=== PATIENT | female | born 1950 | race Caucasian/White ===

== ENCOUNTER → 2016-12-04 | Outpatient (REF) | LOC: COL.LAB 16:07 | DX: Z53.9 Procedure and treatment not carried out, unspecified reason (principal) ==

== ENCOUNTER → 2016-12-17 | Outpatient (REF) | LOC: COL.LAB 12:02 | DX: Z02.81 Encounter for paternity testing (principal) ==

== ENCOUNTER → 2019-05-09 | Outpatient (CLI) | payer MEDICARE, OTHER | LOC: MC.RAD 13:06 | DX: Z12.31 Encounter for screening mammogram for malignant neoplasm of breast (principal) ==

== ENCOUNTER → 2021-05-10 | Outpatient (CLI) | payer MEDICARE, OTHER | LOC: MC.RAD 13:55 | DX: Z12.31 Encounter for screening mammogram for malignant neoplasm of breast (principal) ==

== ENCOUNTER 2021-10-08 05:29 | Day surgery (SDC) | payer MEDICARE, OTHER ==
[~2021-10-08] VITALS: Ht 162.6 cm; Wt 68.3 kg
[2021-10-08] VITALS (10 sets, daily range): BP systolic 117–138; BP diastolic 60–71; PULSE 62–80; TEMP 97.4–97.5
[2021-10-08] MEDS ORDERED: LIVALO4 MG PO (06:35)
[2021-10-08] MEDS ORDERED: ZETIA 10MG TAB10 MG PO (06:36)
[2021-10-08] MEDS ORDERED: CLIMARA 0.1 PATCH.WK TD (06:36)
[2021-10-08] MEDS ORDERED: VTAMINC250TA (06:37)
[2021-10-08] MEDS ORDERED: MASON NATURAL2000 IU PO (06:38)
[2021-10-08] MEDS ORDERED: DUO-KAPS1 CAP PO (06:39)
--- NOTE | 2021-10-08 15:51 | NUR ---
Assisted patient in walking in hallway, pt unsteady at times and slightly forgetful. Escorted patient back to reclinernj DD. Tolerating PO liquids without issues. States she has been passing gas, no BM. Call light within reach.
--- NOTE | 2021-10-08 19:04 | NUR ---
Plan of care reviewed with patient, she feels most comfortable staying overnight. Pain has been well controlled with scheduled meds. Tolerating PO intake. Reports passing gas, no BM yet. Resting in bed.
--- NOTE | 2021-10-09 00:36 | NUR ---
Report received from day shift nurse. Assessment and evening medication adminstration completed without difficulty. Patient is in a pleasant mood, sitting bed and watching television. Patient denies any complaints of pain. Gr catheter currently placed, output is light yellow with no signs of sediment. Low fiber diet in place and patients 5 lap sites are well approximated. No other complaints at this time. Call light within reach.
[2021-10-09 00:45] VITALS: BP 104/45; PULSE 71; TEMP 98.2
[2021-10-09 04:49] VITALS: BP 141/60; PULSE 58; TEMP 97.7
--- NOTE | 2021-10-09 05:37 | NUR ---
Patient is here due to a prolapsed vaginal post hysterectomy. Patient has been pleasant when awake and has had no complaints of pain during the maintenance mechanic 2nd shift. Gr is in place with clear, yellow output. Patient still has to produce a BM but states that "it's normal for me to go a few days without going". Patient states that she is passing gas. Patient has no other complaints at this time. Call light within reach.
[2021-10-09 07:47] VITALS: BP 121/72; PULSE 64; TEMP 98.2
--- NOTE | 2021-10-09 08:26 | NUR ---
Patient assisted up to chair, stand by assist. Dr. Mark rounded this am, plan of care reviewed. Simón spann per orders, patient tolerated well. Int x2. Breakfast ordered, patient denies nausea. She reports passing flatus. Abdomen soft, incision site edges well approximated. Will monitor.
--- NOTE | 2021-10-09 09:39 | NUR ---
Social Work student met with patient to discuss discharge planning. Patient lives in [place] with her , Janes (ph#[phone]). Patient's PCP is Dr. Golden. Patient says that her is retired , so they get their medications from [facility], but they use [facility] in [place] as a back up if needed. Patient does not utilize any DME at home, and patient states she is independent with her ADL's. Patient states that she has established a DPOA-HC recently with an tax associate attorney, but has yet to receive a copy of their documents. Patient states that her primary agent is her son, Dewey Jang, and she was unable to provide a phone number at the time of meeting. Discharge plan: Home
--- NOTE | 2021-10-09 10:01 | NUR ---
Initial visit; Patient thanked Configuration Specialist for listening and offering comfort at the mention of Nayeli's sister had recently passed. Configuration Specialist offered prayer and will keep Nayeli, her sister Myriam and her family in Configuration Specialist's prayers.
--- NOTE | 2021-10-09 11:47 | NUR ---
Patient ready for discharge. made aware & discharge orders obtained. Patient has voided x2 without troubles. Her spouse here to take her home, we reviewed all discharge information. We discussed follow up appt. Incision cares and importance of calling doctor with any questions or concerns. home med list & using tyelnol & motrin for pain reviewed, as well as stool softners as needed. Patient wheeled out with all belongings. her taking her home
== END 2021-10-09 11:54 | disposition home or self-care (01) ==
LOC: SDCO 05:29 → SURG 10:12 → SDCO 10:30
DX: N99.3 Prolapse of vaginal vault after hysterectomy (principal); E78.5 Hyperlipidemia, unspecified; M19.90 Unspecified osteoarthritis, unspecified site; E78.00 Pure hypercholesterolemia, unspecified; E78.1 Pure hyperglyceridemia; Z79.899 Other long term (current) drug therapy
CPT/HCPCS: OP; A4314; C1781; J0690; J1885; J2405; J7120

== ENCOUNTER → 2023-12-03 | Outpatient (CLI) | payer MEDICARE, OTHER ==
[~2023-12-03] MED LIST: CLIMARA 0.1 PATCH.WK TD; DUO-KAPS1 CAP PO; LIVALO4 MG PO; MASON NATURAL2000 IU PO; VTAMINC250TA; ZETIA 10MG TAB10 MG PO
== END ==
LOC: MC.RAD 08:45
DX: Z12.31 Encounter for screening mammogram for malignant neoplasm of breast (principal)